=== PATIENT | female | born 1960 | race Caucasian/White ===

== ENCOUNTER 2017-07-07 05:39 | Emergency (ER) | payer MEDICARE, MEDICAID ==
[2017-07-07 06:01] VITALS: BP 174/90
--- NOTE | 2017-07-07 06:58 | ER Document Report ---
ED General - General Chief Complaint: Low Blood Sugar Stated Complaint: FALL Time Seen by Provider: 07/07/17 06:10 Mode of Arrival: Ambulatory Information source: Patient Notes: 57-year-old female diabetic who has been taking 50 units of insulin in the morning and 30 units at night but has not been checking her blood sugar since she does not have a machine at home presents with a fall. Patient notes she is fallen out 3 times in the past 2 weeks. She is unsure why she fell. When EMS checked her blood sugar was noted to be low glucose of 53, she was given oral glucose 15 mg by EMS and is now alert and oriented TRAVEL OUTSIDE OF THE [place] IN LAST 30 DAYS: No - HPI Onset: Just prior to arrival Onset/Duration: Sudden Quality of pain: Achy Severity: Mild Pain Level: 1 Associated symptoms: Body/muscle aches, Weakness Exacerbated by: Denies Relieved by: Denies Similar symptoms previously: Yes Recently seen / treated by doctor: No - Related Data Allergies/Adverse Reactions: codeine [Codeine] Allergy (Mild, Verified 03/10/16 22:34) fluoxetine HCl [From Prozac] Allergy (Mild, Verified 03/10/16 22:34) Past Medical History - Social History Smoking Status: Never Smoker Cigarette use (# per day): No Chew tobacco use (# tins/day): No Smoking Education Provided: No Family History: Reviewed & Not Pertinent - Past Medical History Cardiac Medical History: Reports: Hx Atrial Fibrillation, Hx Hypercholesterolemia, Hx Hypertension Pulmonary Medical History: Reports: Hx Asthma Neurological Medical History: Reports: Hx Cerebrovascular Accident Endocrine Medical History: Reports: Hx Diabetes Mellitus Type 1, Hx Diabetes Mellitus Type 2 Psychiatric Medical History: Reports: Hx Depression Past Surgical History: Reports: Hx Appendectomy, Hx Section, Hx Cholecystectomy, Hx Tonsillectomy Review of Systems - Review of Systems Notes: REVIEW OF SYSTEMS: CONSTITUTIONAL : Denies fever, chills, or sweats. Denies recent illness. EENT: Denies eye, ear, throat, or mouth pain or symptoms. Denies nasal or sinus congestion or discharge. Denies throat, tongue, or mouth swelling or difficulty swallowing. CARDIOVASCULAR: Denies chest pain. Denies palpitations or racing or irregular heart beat. Denies ankle edema. RESPIRATORY: Denies cough, cold, or chest congestion. Denies shortness of breath, difficulty breathing, or wheezing. GASTROINTESTINAL: Denies abdominal pain or distention. Denies nausea, vomiting , or diarrhea. Denies blood in vomitus, stools, or per rectum. Denies black, tarry stools. Denies constipation. GENITOURINARY: Denies difficulty urinating, painful urination, burning, frequency, blood in urine, or discharge. FEMALE GENITOURINARY: Denies vaginal bleeding, heavy or abnormal periods, irregular periods. Denies vaginal discharge or odor. MUSCULOSKELETAL: Admits low back pain SKIN: Denies rash, lesions or sores. HEMATOLOGIC : Denies easy bruising or bleeding. LYMPHATIC: Denies swollen, enlarged glands. NEUROLOGICAL: Admits to weakness PSYCHIATRIC: Denies anxiety or stress. Denies depression, suicidal ideation, or homicidal ideation. ALL OTHER SYSTEMS REVIEWED AND NEGATIVE. PHYSICAL EXAMINATION: GENERAL: Well-appearing, well-nourished and in no acute distress. HEAD: Atraumatic, normocephalic. EYES: Pupils equal round and reactive to light, extraocular movements intact, conjunctiva are normal. ENT: Nares patent, oropharynx clear without exudates. Moist mucous membranes. NECK: Normal range of motion, supple without lymphadenopathy LUNGS: Breath sounds clear to auscultation bilaterally and equal. No wheezes rales or rhonchi. HEART: Regular rate and rhythm without murmurs ABDOMEN: Soft, nontender, nondistended abdomen. No guarding, no rebound. No masses appreciated. Female : deferred Musculoskeletal: Normal range of motion, no pitting or edema. No cyanosis. NEUROLOGICAL: Cranial nerves grossly intact. Normal speech, normal gait. Normal sensory, motor exams PSYCH: Normal mood, normal affect. SKIN: Psoriasis noted Dictation was performed using [employer] voice recognition software Physical Exam - Vital signs Vitals: Temp Pulse Resp BP Pulse Ox 98.1 F 86 20 174/90 H 96 07/07/17 05:53 07/07/17 05:53 07/07/17 05:53 07/07/17 05:53 07/07/17 05:53 Course - Re-evaluation Re-evalutation: 07/07/17 06:58 Patient has been fed is alert oriented, she looks much better now than EMSs presentation. I believe her falls have been secondary to hypoglycemic events. Patient will have lab work ordered to rule out any other life-threatening abnormalities 07/07/17 07:39 Patient's blood sugar is noted to be 71 on her CMP, she has been ordered food 07/07/17 09:09 Patient lab work otherwise notes no significant abnormality she looks well is in no distress I will discharge her home at this time. Patient must check her blood sugar prior to giving herself insulin After performing a Medical Screening Examination, I estimate there is LOW risk for ACUTE APPENDICITIS, BOWEL OBSTRUCTION, ACUTE CHOLECYSTITIS, PERFORATED DIVERTICULITIS, INCARCERATED HERNIA, PANCREATITIS, PELVIC INFLAMMATORY DISEASE, PERFORATED ULCER, ECTOPIC , or TUBO-OVARIAN ABSCESS, thus I consider the discharge disposition reasonable. Also, there is no evidence or peritonitis , sepsis, or toxicity. I have reevaluated this patient multiple times and no significant life threatening changes are noted. The patient and I have discussed the diagnosis and risks, and we agree with discharging home with close follow-up with the understanding that symptoms and presentations can change. We also discussed returning to the Emergency Department immediately if new or worsening symptoms occur. We have discussed the symptoms which are most concerning (e.g., bloody stool, fever, changing or worsening pain, vomiting) that necessitate immediate return. - Vital Signs Vital signs: Temp Pulse Resp BP Pulse Ox 98.1 F 86 20 174/90 H 96 07/07/17 05:53 07/07/17 05:53 07/07/17 05:53 07/07/17 05:53 07/07/17 05:53 - Laboratory Result Diagrams: 07/07/17 06:50 07/07/17 06:50 Laboratory results interpreted by me: 07/07/17 07/07/17 05:59 06:50 Sodium 146.2 H Carbon Dioxide 33 H Glucose 72 L POC Glucose 111 H Discharge - Discharge Clinical Impression: Noncompliance with medication regimen, Hypoglycemia Condition: Stable Disposition: HOME, SELF-CARE Instructions: Hypoglycemia ([facility]) Additional Instructions: Follow up with your physician tomorrow for further care or return to the ED IMMEDIATELY if symptoms worsen or new concerns occur. If you cannot afford to follow up with your primary care physician a list of low cost clinics have been provided at the end of your discharge papers as well. Referrals: CHRISTIAN CHERRY PA-C [Primary Care Provider] - Follow up tomorrow
[2017-07-07 07:05] LABS: APPEARANCE,URINE CLEAR; BILIRUBIN,URINE NEGATIVE (NEGATIVE); GLUCOSE, URINE NEGATIVE (NEGATIVE); KETONES,URINE NEGATIVE (NEGATIVE); LEUKOCYTE ESTERASE,URINE NEGATIVE (NEGATIVE); NITRITE,URINE NEGATIVE (NEGATIVE); PROTEIN,URINE NEGATIVE (NEGATIVE); URINE SPECIFIC GRAVITY 1.008; UROBILINOGEN,URINE NEGATIVE mg/dL (<2.0)
[2017-07-07 07:07] LABS: ABSOLUTE BASOPHILS # (AUTO) 0.1 10^3/uL (0.0-0.2); ABSOLUTE LYMPHOCYTES (AUTO) 1.3 10^3/uL (0.5-4.7); ABSOLUTE MONOCYTES (AUTO) 0.7 10^3/uL (0.1-1.4); ABSOLUTE NEUT (AUTO) 6.5 10^3/uL (1.7-8.2); BASOPHILS % (AUTO) 0.8 % (0-2); EOSINOPHILS % (AUTO) 0.5 % (0-6); HEMATOCRIT 43.2 % (36.0-47.0); HEMOGLOBIN 14.7 g/dL (12.0-15.5); HGB HCT DIFFERENCE 0.9; MEAN CORPUSCULAR HEMOGLOBIN 31.7 pg (27.0-33.4); MEAN CORPUSCULAR HGB CONC 34.1 g/dL (32.0-36.0); MEAN CORPUSCULAR VOLUME 93 fl (80-97); MONOCYTES % (AUTO) 8.5 % (3-13); RED BLOOD COUNT 4.64 10^6/uL (3.72-5.28); SEGMENTED NEUTROPHILS % (AUTO) 75.2 % (42-78); WHITE BLOOD COUNT 8.7 10^3/uL (4.0-10.5)
[2017-07-07 07:25] LABS: ALANINE AMINOTRANSFERASE 36 U/L (9-52); ALBUMIN 3.7 g/dL (3.5-5.0); ALKALINE PHOSPHATASE 107 U/L (38-126); ANION GAP 7 (5-19); ASPARTATE AMINO TRANSFERASE 21 U/L (14-36); BILIRUBIN,DIRECT 0.4 mg/dL (0.0-0.4); BILIRUBIN,TOTAL 0.6 mg/dL (0.2-1.3); BLOOD UREA NITROGEN 14 mg/dL (7-20); CALCIUM 9.2 mg/dL (8.4-10.2); CARBON DIOXIDE 33 mmol/L (22-30); CHLORIDE 106 mmol/L (98-107); CREATININE RESULT 0.58 mg/dL (0.52-1.25); GLUCOSE 72 mg/dL (75-110); POTASSIUM 3.8 mmol/L (3.6-5.0); SODIUM 146.2 mmol/L (137-145); TOTAL PROTEIN 6.4 g/dL (6.3-8.2)
[2017-07-07] MEDS ORDERED: IBUPROFEN 800 MG TABLET PO ONE (09:17)
--- NOTE | 2017-07-07 11:34 | RADIOLOGY REPORT (SQ) ---
EXAM DESCRIPTION: L SPINE WHOLE COMPLETED DATE/TIME: 07/07/2017 8:43 am REASON FOR STUDY: fall COMPARISON: February 2016 NUMBER OF VIEWS: Five views including obliques. TECHNIQUE: AP, lateral, oblique, and sacral radiographic images acquired of the lumbar spine. LIMITATIONS: Study is limited due to the patient's body habitus. Lateral views could not be obtaine d. FINDINGS: MINERALIZATION: Normal. SEGMENTATION: Normal. No transitional anatomy. ALIGNMENT: Normal. VERTEBRAE: Maintained height. No fracture or worrisome bone lesion. DISCS: Preserved height. No significant osteophytes or end plate irregularity. POSTERIOR ELEMENTS: Pedicles and facets are intact. No pars defect or posterior arch defects. HARDWARE: None in the spine. PARASPINAL SOFT TISSUES: Normal. PELVIS: Intact as visualized. No fractures or worrisome bone lesions. SI joints intact. OTHER: No other significant finding. IMPRESSION: Limited study as noted above. No significant findings. TECHNICAL DOCUMENTATION: JOB ID: [id number] [employer]- All Rights Reserved
== END 2017-07-07 10:50 | disposition home or self-care (01) ==
LOC: ER 05:39
DX: E11.649 Type 2 diabetes mellitus with hypoglycemia without coma (principal); W19.XXXA Unspecified fall, initial encounter; Z79.4 Long term (current) use of insulin; Z91.14 Patient's other noncompliance with medication regimen
CPT/HCPCS: 36415; 72110; 80053; 81001; 82962; 85025; 99284

== ENCOUNTER 2018-02-08 15:21 | Observation (INO) | payer MEDICARE, MEDICAID ==
[2018-02-08] MEDS ORDERED: NITROGLYCERIN 2% OINTMENT 1 GM PACKET TP ONE (15:36)
--- NOTE | 2018-02-08 15:39 | ER Document Report ---
ED General - General Stated Complaint: CHEST PAIN Time Seen by Provider: 02/08/18 15:36 Mode of Arrival: Medic Information source: Patient Notes: This is a pleasant 57-year-old female with a history of coronary artery disease (MT in the past), cerebral aneurysm pair, multiple CVAs, atrial fibrillation ( on Eliquis). Patient is currently a resident of [facility] because of significant fall risk. Patient presents with 1 hour history of chest pain. Patient describes retrosternal, nonradiating squeezing pressure. She does report some shortness of breath. She was given 2 sublingual nitroglycerin and 324 mg of aspirin by EMS. Patient states she did have relief with the nitroglycerin. TRAVEL OUTSIDE OF THE [place] IN LAST 30 DAYS: No - HPI Onset: Just prior to arrival Onset/Duration: Gradual Quality of pain: Dull Severity: Moderate Pain Level: 2 Associated symptoms: Chest pain. denies: Fever, Shortness of breath Exacerbated by: Denies Relieved by: Denies Similar symptoms previously: Yes Recently seen / treated by doctor: No - Related Data Allergies/Adverse Reactions: codeine [Codeine] Allergy (Mild, Verified 03/10/16 22:34) fluoxetine HCl [From Prozac] Allergy (Mild, Verified 03/10/16 22:34) Past Medical History - General Information source: Patient - Social History Smoking Status: Never Smoker Cigarette use (# per day): No Chew tobacco use (# tins/day): No Frequency of alcohol use: None Drug Abuse: None Family History: Reviewed & Not Pertinent Patient has suicidal ideation: No Patient has homicidal ideation: No - Past Medical History Cardiac Medical History: Reports: Hx Atrial Fibrillation, Hx Hypercholesterolemia, Hx Hypertension Pulmonary Medical History: Reports: Hx Asthma Neurological Medical History: Reports: Hx Cerebrovascular Accident Endocrine Medical History: Reports: Hx Diabetes Mellitus Type 1, Hx Diabetes Mellitus Type 2 Psychiatric Medical History: Reports: Hx Depression Past Surgical History: Reports: Hx Appendectomy, Hx Section, Hx Cholecystectomy, Hx Tonsillectomy Review of Systems - Review of Systems Constitutional: denies: Chills, Fever EENT: No symptoms reported Cardiovascular: See HPI Respiratory: No symptoms reported Gastrointestinal: No symptoms reported Genitourinary: No symptoms reported Female Genitourinary: No symptoms reported Musculoskeletal: No symptoms reported Skin: No symptoms reported Hematologic/Lymphatic: No symptoms reported Neurological/Psychological: No symptoms reported Physical Exam - Vital signs Vitals: Resp BP Pulse Ox 22 H 148/92 H 94 02/08/18 15:28 02/08/18 15:28 02/08/18 15:28 Notes: Physical exam: GENERAL: 57-year-old female, alert and oriented 3, no acute distress HEAD: Atraumatic, normocephalic. EYES: Pupils equal round and reactive to light, extraocular movements intact, sclera anicteric, conjunctiva are normal. ENT: TMs normal, nares patent, oropharynx clear without exudates. Moist mucous membranes. NECK: Normal range of motion, supple without obvious mass or JVD. LUNGS: Breath sounds clear to auscultation bilaterally and equal. No wheezes rales or rhonchi. HEART: Regular rate and rhythm without murmurs, rubs or gallops. ABDOMEN: Soft, normoactive bowel sounds. No tenderness to palpation. No guarding, no rebound. No masses appreciated. EXTREMITIES: Normal range of motion, no pitting or edema. No clubbing or cyanosis. NEUROLOGICAL: Cranial nerves II through XII grossly intact. Normal speech, moving all extremities. PSYCH: Normal mood, normal affect. SKIN: Warm, Dry, normal turgor, no rashes or lesions noted. Course - Vital Signs Vital signs: Temp Pulse Resp BP Pulse Ox 98.1 F 80 20 143/65 H 91 L 02/08/18 22:01 02/08/18 22:01 02/08/18 22:01 02/08/18 22:01 02/08/18 22:01 - Laboratory Result Diagrams: 02/08/18 16:15 02/08/18 16:15 Laboratory results interpreted by me: 02/08/18 16:15 Glucose 280 H Total Protein 6.1 L - Diagnostic Test Radiology reviewed: Image reviewed, Reports reviewed - Chest x-ray shows no infiltrates - EKG Interpretation by Ks Rate: Normal Rhythm: NSR - EKG shows normal sinus rhythm with a ventricular rate of 87, no acute ST-T wave changes Discharge - Discharge Clinical Impression: Chest pain Condition: Stable Disposition: ADMITTED OBSERVATION Admitting Provider: Hospitalist - Dr Chen Unit Admitted: Telemetry
--- NOTE | 2018-02-08 16:26 | RADIOLOGY REPORT (SQ) ---
EXAM DESCRIPTION: CHEST SINGLE VIEW COMPLETED DATE/TIME: 02/08/2018 4:17 pm REASON FOR STUDY: cp COMPARISON: 05/17/2010 EXAM PARAMETERS: NUMBER OF VIEWS: One view. TECHNIQUE: Single frontal radiographic view of the chest acquired. RADIATION DOSE: NA LIMITATIONS: None. FINDINGS: LUNGS AND PLEURA: Low lung volumes. No acute infiltrate. A pleural effusion cannot be ex cluded in the left base. MEDIASTINUM AND HILAR STRUCTURES: No masses. Contour normal. HEART AND VASCULAR STRUCTURES: Cardiomegaly. Pulmonary vascular prominence. No km failure. BONES: No acute findings. HARDWARE: None in the chest. OTHER: No other significant finding. IMPRESSION: Cardiomegaly with pulmonary vascular prominence but no km CHF. Cannot exclude a left pleural effusion. TECHNICAL DOCUMENTATION: JOB ID: [id number] [employer]- All Rights Reserved Reading location - IP/workstation name: [email or web address]
[2018-02-08 16:33] LABS: ABSOLUTE BASOPHILS # (AUTO) 0.1 10^3/uL (0.0-0.2); ABSOLUTE EOSINOPHILS # (AUTO) 0.1 10^3/uL (0.0-0.6); ABSOLUTE LYMPHOCYTES (AUTO) 2.3 10^3/uL (0.5-4.7); ABSOLUTE MONOCYTES (AUTO) 0.7 10^3/uL (0.1-1.4); EOSINOPHILS % (AUTO) 1.7 % (0-6); HEMATOCRIT 44.2 % (36.0-47.0); HEMOGLOBIN 14.9 g/dL (12.0-15.5); LYMPHOCYTES % (AUTO) 28.1 % (13-45); MEAN CORPUSCULAR HEMOGLOBIN 31.6 pg (27.0-33.4); MEAN CORPUSCULAR HGB CONC 33.7 g/dL (32.0-36.0); MEAN CORPUSCULAR VOLUME 94 fl (80-97); MONOCYTES % (AUTO) 8.9 % (3-13); PLATELET COUNT 269 10^3/uL (150-450); RED BLOOD COUNT 4.73 10^6/uL (3.72-5.28); RED CELL DISTRIBUTION WIDTH 13.8 % (11.5-14.0); SEGMENTED NEUTROPHILS % (AUTO) 60.3 % (42-78); TOTAL CELLS COUNTED % (AUTO) 100 %; WHITE BLOOD COUNT 8.3 10^3/uL (4.0-10.5)
[2018-02-08 16:45] LABS: ALANINE AMINOTRANSFERASE 44 U/L (9-52); ALBUMIN 3.7 g/dL (3.5-5.0); ALKALINE PHOSPHATASE 123 U/L (38-126); ANION GAP 10 (5-19); ASPARTATE AMINO TRANSFERASE 20 U/L (14-36); BILIRUBIN,DIRECT 0.3 mg/dL (0.0-0.4); BILIRUBIN,TOTAL 0.3 mg/dL (0.2-1.3); BLOOD UREA NITROGEN 13 mg/dL (7-20); CARBON DIOXIDE 30 mmol/L (22-30); CHLORIDE 102 mmol/L (98-107); CREATINE KINASE 34 U/L (30-135); GLUCOSE 280 mg/dL (75-110); POTASSIUM 4.3 mmol/L (3.6-5.0); SODIUM 142.4 mmol/L (137-145); TOTAL PROTEIN 6.1 g/dL (6.3-8.2)
[2018-02-08] MEDS ORDERED: NICOTINE 14 MG/24 HR PATCH.TD24 TD ONE (17:01)
[2018-02-08 17:06] LABS: CREATINE KINASE MB 0.68 ng/mL (<4.55)
[2018-02-08 17:07] LABS: TROPONIN I < 0.012 ng/mL
--- NOTE | 2018-02-08 18:25 | EKG REPORT ---
SEVERITY:- BORDERLINE ECG - SINUS RHYTHM BORDERLINE LEFT AXIS DEVIATION CONSIDER ANTERIOR INFARCT : Confirmed by: Bonifacio Gutierrez MD 08-Feb-2018 18:24:58
--- NOTE | 2018-02-08 19:26 | PDOC H&P ---
History of Present Illness Admission Date/PCP: 02/08/18 18:14 CHRISTIAN CHERRY PA-C Patient complains of: Chest pain History of Present Illness: MAHAD WHEAT is a 57 year old female with history of paroxysmal A. fib, CVA, history of multiple CVAs and resident of [facility] apparently due to falls risk. She now presented with complaint of chest pressure for 1 hour, in the middle of her chest, squeezing. No diaphoresis, no nausea or vomiting. Patient reports history of CAD and ME about 10 years ago, states this pain is different. She presented to the ED where EKG was unremarkable. She was treated with nitro with significant improvement in symptoms. Denies dysuria or polyuria, no urinary frequency. Denies rectal bleeding. No abdominal pain, denies palpitations. Patient is referred to hospitalist service for admission. Past Medical History Cardiac Medical History: Reports: Atrial Fibrillation, Hyperlipidema, Hypertension Pulmonary Medical History: Reports: Asthma Endocrine Medical History: Reports: Diabetes Mellitus Type 1, Diabetes Mellitus Type 2 Psychiatric Medical History: Reports: Depression Past Surgical History Past Surgical History: Reports: Appendectomy, Section, Cholecystectomy , Tonsillectomy Social History Smoking Status: Current Every Day Smoker Frequency of Alcohol Use: None Hx Recreational Drug Use: Yes Drugs: Marijuana Hx Prescription Drug Abuse: No Family History Family History: Reviewed & Not Pertinent Parental Family History Reviewed: Yes Children Family History Reviewed: Yes Sibling(s) Family History Reviewed.: Yes Medication/Allergy Allergies/Adverse Reactions: codeine [Codeine] Allergy (Mild, Verified 03/10/16 22:34) fluoxetine HCl [From Prozac] Allergy (Mild, Verified 03/10/16 22:34) Review of Systems Review of Systems: CONSTITUTIONAL : Fever, chills -- No; unexpalined fatigue -- No EENT: Denies eye, ear, throat, or mouth pain or symptoms. Denies nasal or sinus congestion or discharge. Denies throat, tongue, or mouth swelling or difficulty swallowing. CARDIOVASCULAR: As in history present illness RESPIRATORY: Denies cough, no shortness of breath, difficulty breathing. GASTROINTESTINAL: Denies abdominal pain or distention. Denies nausea, vomiting , or diarrhea. No rectal bleeding. GENITOURINARY: Urinary symptoms -- no. MUSCULOSKELETAL: No acute weakness SKIN: Denies rash, lesions or sores. HEMATOLOGIC : Denies easy bruising or bleeding. LYMPHATIC: Denies swollen, enlarged glands. NEUROLOGICAL: New weakness, headaches, slured speach - No PSYCHIATRIC: Changes anxiety or stress, depression, suicidal ideation, or homicidal ideation -- No ALL OTHER SYSTEMS REVIEWED AND NEGATIVE. Physical Exam Vital Signs: Temp Pulse Resp BP Pulse Ox 98.4 F 22 H 148/83 H 95 02/08/18 15:42 02/08/18 18:01 02/08/18 18:01 02/08/18 18:01 GENERAL: Well-developed, no acute distress HEENT: Normocephalic/atraumatic NECK supple, no JVD CARDIOVASCULAR: RRR, normal S1-S2, no appreciable murmur LUNGS: CTA bilaterally ABDOMEN: Soft, NT, NL bowel sounds EXTREMITIES: No edema, clubbing, cyanosis NEUROLOGICAL: Alert, oriented x 3, no acute lateralizing weakness Results Impressions: Chest X-Ray 02/08/18 15:25 IMPRESSION: Cardiomegaly with pulmonary vascular prominence but no km CHF. Cannot exclude a left pleural effusion. Assessment & Plan - Diagnosis (1) Chest pain Is this a current diagnosis for this admission?: Yes Plan: We will admit to 24-hour supervision. Check serial troponin to rule out ME. Will treat with aspirin, nitro. O2 hypoxic. -Stress Cardiolite in a.m. if rules out for ME. -We will follow-up PA and lateral chest x-ray in a.m., check BNP. (2) Paroxysmal atrial fibrillation Is this a current diagnosis for this admission?: Yes Plan: Patient on Eliquis as outpatient. Will continue. (3) History of CVA (cerebrovascular accident) Is this a current diagnosis for this admission?: Yes Plan: Continue Eliquis. (4) CAD (coronary artery disease) Is this a current diagnosis for this admission?: Yes Plan: Aspirin, statin. (5) Tobacco abuse Is this a current diagnosis for this admission?: Yes Plan: Smoking cessation counseling. We will treat with nicotine patch. (6) Shortness of breath Is this a current diagnosis for this admission?: Yes Plan: Likely related to chest pain. Chest x-ray with possible congestion/possible left pleural effusion. Follow-up chest x-ray PA/lateral. Check BNP.
[2018-02-08] MEDS ORDERED: GUAIFENESIN 600 MG TABLET.SA PO PRN (22:24)
[2018-02-08] MEDS ORDERED: DEXTROSE 40% GEL 15 GM TUBE PO PRN ×2 (22:25)
[2018-02-08] MEDS ORDERED: GLUCAGON,HUMAN RECOMB 1 MG INJ IM PRN (22:25)
[2018-02-08] MEDS ORDERED: DEXTROSE 50%-WATER 25 GM/50 ML DISP.SYRIN IV PRN ×2 (22:25)
[2018-02-08] MEDS ORDERED: APIXABAN 5 MG TABLET PO ONE (23:00)
[2018-02-09 06:52] LABS: HEMATOCRIT 43.6 % (36.0-47.0); HEMOGLOBIN 14.7 g/dL (12.0-15.5); MEAN CORPUSCULAR HEMOGLOBIN 31.5 pg (27.0-33.4); MEAN CORPUSCULAR HGB CONC 33.8 g/dL (32.0-36.0); MEAN CORPUSCULAR VOLUME 93 fl (80-97); PLATELET COUNT 272 10^3/uL (150-450); RED BLOOD COUNT 4.69 10^6/uL (3.72-5.28); RED CELL DISTRIBUTION WIDTH 13.4 % (11.5-14.0); WHITE BLOOD COUNT 10.2 10^3/uL (4.0-10.5)
[2018-02-09 07:11] LABS: ANION GAP 8 (5-19); BLOOD UREA NITROGEN 13 mg/dL (7-20); CALCIUM 9.1 mg/dL (8.4-10.2); CARBON DIOXIDE 28 mmol/L (22-30); CHLORIDE 104 mmol/L (98-107); GLUCOSE 257 mg/dL (75-110); POTASSIUM 4.4 mmol/L (3.6-5.0); SODIUM 140.4 mmol/L (137-145)
[2018-02-09] MEDS: HUM INSULIN NPH/REG INSULIN HM 100 UNIT/1 ML 3 ML SUBCUT SCH ×2 (08:17→18:56)
[2018-02-09] MEDS ORDERED: (PENDING PHARMACY ID) (Buspirone Hcl [Buspar 15 Mg Tablet] 7.5 MG) PO SCH (10:00)
[2018-02-09] MEDS ORDERED: (PENDING PHARMACY ID) (Lisinopril/Hydrochlorothiazide [Lisinopril-Hctz 20-12.5 Mg Tab] 1 E PO SCH (10:00)
[2018-02-09] MEDS: LISINOPRIL 10 MG TABLET PO SCH (11:34)
[2018-02-09] MEDS: ATORVASTATIN CALCIUM 20 MG TABLET PO SCH (11:34)
[2018-02-09] MEDS: LEVOTHYROXINE SODIUM 0.1 MG TABLET PO SCH (11:34)
[2018-02-09] MEDS: ASPIRIN 81 MG TABLET, ENT COATED PO SCH (11:35)
[2018-02-09] MEDS: APIXABAN 5 MG TABLET PO SCH ×2 (11:35→20:52)
[2018-02-09] MEDS: HYDROCHLOROTHIAZIDE 12.5 MG CAPSULE PO SCH (11:35)
[2018-02-09] MEDS ORDERED: REGADENOSON INJ 0.4 MG/5 ML DISP.SYRIN IV ONE (11:52)
--- NOTE | 2018-02-09 12:00 | RADIOLOGY REPORT (SQ) ---
EXAM DESCRIPTION: CHEST 2 VIEWS COMPLETED DATE/TIME: 02/09/2018 11:24 am REASON FOR STUDY: chest pain, possible pleural effusion R07.9 CHEST PAIN, UNSPECIFIED R06.02 SHORT NESS OF BREATH COMPARISON: 02/08/2018. NUMBER OF VIEWS: One view. TECHNIQUE: Single frontal radiographic view of the chest acquired. LIMITATIONS: None. FINDINGS: LUNGS AND PLEURA: Eventration of the right hemidiaphragm. Left pleural effusion. MEDIASTINUM AND HILAR STRUCTURES: No masses or contour abnormality. HEART AND VASCULATURE: Cardiac enlargement. Vascular congestion. BONES: No acute findings. HARDWARE: None in the chest. OTHER: No other significant finding. IMPRESSION: CARDIAC ENLARGEMENT. VASCULAR CONGESTION. LEFT PLEURAL EFFUSION. TECHNICAL DOCUMENTATION: JOB ID: [id number] [employer]- All Rights Reserved Reading location - IP/workstation name: [email or web address]
[2018-02-09] MEDS ORDERED: ALBUTEROL SULFATE HFA (90 MCG/PUFF) 8 GM MDI (1 MDI/ER DISP) IH PRN (14:03)
[2018-02-09] MEDS ORDERED: ALBUTEROL SULFATE HFA (90 MCG/PUFF) 200 PUFF/8.5 GM MDI IH PRN (14:08)
--- NOTE | 2018-02-09 14:22 | PDOC PROGRESS REPORT ---
Subjective Progress Note for:: 02/09/18 Subjective:: Doing better, no more chest pain at this time. No fever or chills, no shortness of breath or palpitations. Denies cough or hemoptysis. Reason For Visit: CHEST PAIN, CAD Physical Exam Vital Signs: Temp Pulse Resp BP Pulse Ox 97.6 F 78 20 152/96 H 95 02/09/18 11:32 02/09/18 11:32 02/09/18 11:32 02/09/18 11:32 02/09/18 11:32 Intake & Output 02/08/18 02/09/18 02/10/18 06:59 06:59 06:59 Output Total 600 Balance -600 Weight 139.8 kg GEN: NAD, well-developed, well-nourished CV: RRR, NL S1S2 LUNGS: Decreased breath sounds left base ABDOMEN Soft, NT, +BS EXTERMITIES: No e/c/c NEURO: Alert, oriented x3, no significant weakness Results Laboratory Results: 02/09/18 06:45 02/09/18 06:45 02/09/18 02/09/18 06:45 06:45 WBC 10.2 RBC 4.69 Hgb 14.7 Hct 43.6 MCV 93 MCH 31.5 MCHC 33.8 RDW 13.4 Plt Count 272 Sodium 140.4 Potassium 4.4 Chloride 104 Carbon Dioxide 28 Anion Gap 8 BUN 13 Creatinine 0.55 Est GFR ( Amer) > 60 Est GFR (Non-Af Amer) > 60 Glucose 257 H Calcium 9.1 02/08/18 02/09/18 02/09/18 21:28 06:45 06:45 Troponin I < 0.012 < 0.012 NT-Pro-B Natriuret Pep 54 Impressions: Chest X-Ray 02/09/18 06:30 IMPRESSION: CARDIAC ENLARGEMENT. VASCULAR CONGESTION. LEFT PLEURAL EFFUSION. Assessment & Plan - Diagnosis (1) Chest pain Is this a current diagnosis for this admission?: Yes Plan: We will admit to 24-hour supervision. Has ruled out for GA. Will continue with aspirin, nitro. O2 hypoxic. -Stress Cardiolite first part done, second part in am due to obesity. -follow-up PA and lateral chest x-ray remains because finding for pulmonary congestion pleural effusion, BNP normal. Will treat with Lasix 40 mg p.o. daily. (2) Paroxysmal atrial fibrillation Is this a current diagnosis for this admission?: Yes Plan: Continue on Eliquis which was as outpatient. (3) History of CVA (cerebrovascular accident) Is this a current diagnosis for this admission?: Yes Plan: Continue Eliquis. (4) CAD (coronary artery disease) Is this a current diagnosis for this admission?: Yes Plan: Continue aspirin, statin. (5) Tobacco abuse Is this a current diagnosis for this admission?: Yes Plan: Smoking cessation counseling. We will treat with nicotine patch. (6) Shortness of breath Is this a current diagnosis for this admission?: Yes Plan: Likely related to chest pain. Chest x-ray also with with possible congestion/ left pleural effusion. Will start Lasix 40 mg p.o. daily.
[2018-02-09] MEDS ORDERED: FUROSEMIDE 40 MG TABLET PO ONE (14:30)
[2018-02-09] MEDS: NICOTINE 21 MG/24 HR PATCH.TD24 TD SCH (15:40)
[2018-02-09] MEDS: INSULIN LISPRO 100 UNIT/ML 3 ML VIAL SUBCUT PRN (16:18)
[2018-02-10] MEDS ORDERED: FUROSEMIDE 40 MG TABLET PO SCH (10:00)
[2018-02-10] MEDS: HUM INSULIN NPH/REG INSULIN HM 100 UNIT/1 ML 3 ML SUBCUT SCH ×2 (10:27→18:10)
[2018-02-10] MEDS: LEVOTHYROXINE SODIUM 0.1 MG TABLET PO SCH (12:46)
[2018-02-10] MEDS: LISINOPRIL 10 MG TABLET PO SCH (12:46)
[2018-02-10] MEDS: ASPIRIN 81 MG TABLET, ENT COATED PO SCH (12:46)
[2018-02-10] MEDS: ATORVASTATIN CALCIUM 20 MG TABLET PO SCH (12:47)
[2018-02-10] MEDS: INSULIN LISPRO 100 UNIT/ML 3 ML VIAL SUBCUT PRN ×2 (12:48→16:53)
[2018-02-10] MEDS: APIXABAN 5 MG TABLET PO SCH (12:48)
[2018-02-10] MEDS: HYDROCHLOROTHIAZIDE 12.5 MG CAPSULE PO SCH (12:48)
--- NOTE | 2018-02-10 13:46 | DRAGON STRESS TEST REPORT ---
2 Day Intravenous Lexiscan Cardiolite stress test using single photon emmision computerized tomography. Date of Resting procedure: 02/10/2018. Date of Stress procedure: 02/09/2018. Ordering Provider: Aly Miller.(Hospitalist.). Indication: Chest pain. Coronary risk factors: Age, diabetes mellitus, hypertension, dyslipidemia, and tobacco abuse disorder Resting EKG: Sinus Rhythm. Low voltage throughout, but no ST-T changes. Stress EKG: No changes of ischemia. Reason for termination: Protocol. The patient had no chest pain or discomfort, and there were no arrhythmias seen. Conclusions: Normal EKG and hemodynamic response to IV Lexiscan. Nuclear data: On 02/09/2018 the patient was given intravenous Lexiscan at a dose of 0.4 mg in 5 mL intravenously, followed by flush with normal saline. Subsequently the stress dose of 40.7 millicuries of technetium 99m sestamibi was injected intravenously. As per protocol stress gated images were obtained. On 02/10/2018 at rest the patient was given 30.7millicuries of technetium 99m sestamibi injected intravenously. As per protocol rest non gated SPECT images were obtained. Nuclear interpretation: Review of images showed this is a poor quality study .There is significant breast contamination artifact of the anterior stanley. There is a mild perfusion defect in the stress images involving the lateral wall which normalizes in the resting images. This area has normal motion contraction and thickening by gated study. The rest of the segments of the myocardium had normal perfusion at rest, and normal perfusion post stress with IV Lexiscan. All segments of the myocardium had normal motion, contraction, and thickening by gated study. T. I D. ratio was abnormal at 1.64. Visually the T.I.D. ratio was abnormal. Computer read rest, and stress left ventricular ejection fraction were 65 %, and 54 %, respectively. Visually both the stress and rest ejection fractions were normal, and greater than 60 %. Conclusion: 1. There is scintigraphic evidence of Lexiscan induced mild myocardial ischemia involving the lateral wall. 2. There is no scintigraphic evidence of myocardial infarction/scar. 3. Abnormal TID ratio, which could mean significant or multivessel coronary artery disease. Recommendations: 1. Recommend cardiac catheterization to assess coronary anatomy, and vascularization of any significant coronary lesion. 2. Aggressive risk factor modification, and treating the underlying co- morbidities. Discussed with the hospitalist taking care of the patient. EMILY
[2018-02-10] MEDS: NICOTINE 21 MG/24 HR PATCH.TD24 TD SCH (15:23)
--- NOTE | 2018-02-10 16:21 | PDOC TRANSFER SUMMARY ---
General Admission Date/PCP: 02/08/18 18:14 CHRISTIAN CHERRY PA-C Resuscitation Status: Full Code - Transfer Diagnosis (1) Chest pain Is this a current diagnosis for this admission?: Yes (2) Paroxysmal atrial fibrillation Is this a current diagnosis for this admission?: Yes (3) History of CVA (cerebrovascular accident) Is this a current diagnosis for this admission?: Yes (4) CAD (coronary artery disease) Is this a current diagnosis for this admission?: Yes (5) Tobacco abuse Is this a current diagnosis for this admission?: Yes (6) Shortness of breath Is this a current diagnosis for this admission?: Yes - Transfer Medications Home Medications: Acetaminophen [Tylenol] 650 mg PO Q4HP PRN 02/08/18 Acetaminophen/Diphenhydramine [Tylenol Pm Ex-Strength Caplet] 2 tab PO QHS 02/08 Albuterol Sulfate [Proair HFA] 2 puff IH Q6HP PRN 02/08/18 Apixaban [Eliquis 5 mg Tablet] 5 mg PO Q12 02/08/18 Atorvastatin Calcium [Lipitor 20 mg Tablet] 20 mg PO DAILY 02/08/18 Buspirone HCl [Buspar 15 mg Tablet] 7.5 mg PO Q12 02/08/18 Guaifenesin [Mucinex] 600 mg PO Q8HP PRN 02/08/18 Hum Insulin NPH/Reg Insulin Hm [Novolin 70-30 100 Unit/Ml Vial] 46 unit SQ QPM 02/08/18 Hum Insulin NPH/Reg Insulin Hm [Novolin 70-30 100 Unit/Ml Vial] 50 unit SQ QAM 02/08/18 Levothyroxine Sodium [Synthroid] 100 mcg PO DAILY 02/08/18 Lisinopril/Hydrochlorothiazide [Lisinopril-Hctz 20-12.5 mg Tab] 1 each PO DAILY 02/08/18 Omeprazole 20 mg PO DAILY 02/08/18 Oxybutynin Chloride [Oxybutynin Chloride ER] 5 mg PO DAILY 02/08/18 Paroxetine HCl [Paxil] 40 mg PO DAILY 02/08/18 Transfer Medications: Current Medications Albuterol (Proair Hfa Inhalation Aerosol 8.5 Gm Mdi) 2 puff IH Q6HP PRN PRN Reason: SHORTNESS OF BREATH Stop: 03/11/18 14:07 Apixaban (Eliquis 5 Mg Tablet) 5 mg PO Q12 [facility] Stop: 03/11/18 09:59 Last Admin: 02/10/18 12:48 Dose: 5 mg Aspirin (Ecotrin 81 Mg Ec Tablet) 81 mg PO DAILY [facility] Stop: 03/11/18 09:59 Last Admin: 02/10/18 12:46 Dose: 81 mg Atorvastatin Calcium (Lipitor 20 Mg Tablet) 20 mg PO DAILY [facility] Stop: 03/11/18 09:59 Last Admin: 02/10/18 12:47 Dose: 20 mg Dextrose (Dextrose Inj 50% Syringe (25 Gm/50 Ml)) 25 gm IV PRN PRN; Protocol PRN Reason: PER PROTOCOL Stop: 03/10/18 22:24 Dextrose (Dextrose Inj 50% Syringe (25 Gm/50 Ml)) 12.5 gm IV PRN PRN; Protocol PRN Reason: FOR BG 50-69 IN ALERT PATIENT Stop: 03/10/18 22:24 Furosemide (Lasix 40 Mg Tablet) 40 mg PO DAILY [facility] Stop: 03/12/18 09:59 Last Admin: 02/10/18 12:47 Dose: 40 mg Glucagon (Glucagen Inj 1 Mg Vial) 1 mg IM PRN PRN; Protocol PRN Reason: Evaluate for BG < 70 Stop: 03/10/18 22:24 Glucose (Glutose 40% Gel 15 Gm Tube) 15 gm PO PRN PRN; Protocol PRN Reason: FOR BG 50-69 IN ALERT PATIENT Stop: 03/10/18 22:24 Glucose (Glutose 40% Gel 15 Gm Tube) 30 gm PO PRN PRN; Protocol PRN Reason: FOR BG < 50 IN ALERT PATIENT Stop: 03/10/18 22:24 Guaifenesin (Mucinex Sr 600 Mg Tablet.Sa) 600 mg PO Q8HP PRN PRN Reason: COUGH Hydrochlorothiazide (Hydrodiuril 12.5 Mg Capsule) 12.5 mg PO DAILY [facility] Stop: 03/11/18 09:59 Last Admin: 02/10/18 12:48 Dose: 12.5 mg Insulin Human Isoph/Insulin Regular (Insulin Inj 70-30 (100 Unit/1 Ml) 3 Ml Vial ) 46 unit SUBCUT QPM [facility] Stop: 03/11/18 17:59 Last Admin: 02/09/18 18:56 Dose: 46 unit Insulin Human Isoph/Insulin Regular (Insulin Inj 70-30 (100 Unit/1 Ml) 3 Ml Vial ) 50 unit SUBCUT QAM [facility] Stop: 03/11/18 07:59 Last Admin: 02/10/18 10:27 Dose: 50 unit Insulin Human Lispro (Humalog Insulin 100 Unit/1 Ml 3 Ml Vial) 0 - 12 unit SUBCUT ACP PRN; Protocol PRN Reason: PER PROTOCOL Stop: 03/10/18 22:24 Last Admin: 02/10/18 12:48 Dose: 6 unit Levothyroxine Sodium (Synthroid 0.1 Mg Tablet) 0.1 mg PO Q6AM [facility]RE[facility] Stop: 03/11/18 09:59 Lisinopril (Prinivil 10 Mg Tablet) 20 mg PO DAILY [facility] Stop: 03/11/18 09:59 Last Admin: 02/10/18 12:46 Dose: 20 mg Nicotine (Nicoderm 21 Mg/24 Hr Transderm Patch) 1 each TD DAILY@1500 [facility]RE[facility] Stop: 03/11/18 14:59 Last Admin: 02/10/18 15:23 Dose: 1 each Patient Own Medication (Buspirone Hcl [Buspar 15 Mg Tablet]) 7.5 mg PO Q12 [facility] Stop: 03/11/18 09:59 Sodium Chloride (Saline Flush 2.5 Ml Monoject Prefil Syrin) 2.5 ml IV Q8 [facility]RE[facility] Stop: 03/10/18 21:59 Last Admin: 02/10/18 15:22 Dose: 2.5 ml - Allergies Allergies/Adverse Reactions: codeine [Codeine] Allergy (Mild, Verified 03/10/16 22:34) fluoxetine HCl [From Prozac] Allergy (Mild, Verified 03/10/16 22:34) quetiapine [From Seroquel] Allergy (Verified 02/09/18 04:51) Hospital Course Hospital Course: MAHAD WHEAT is a 57 year old female with history of paroxysmal A. fib, multiple CVAs and resident of [facility] apparently due to falls risks. She now presented to [facility] ED, in [place], [place], with complaint of chest pressure for 1 hour, in the middle of her chest, squeezing. No diaphoresis, no nausea or vomiting. Patient reported history of CAD and SC about 10 years ago but denies history of cardiac catheterization in the past. Upon current presentation, in the ED EKG was unremarkable. She was treated with nitro with significant improvement in symptoms. Denied dysuria or polyuria , no urinary frequency. No rectal bleeding. No abdominal pain, no palpitations. Patient was admitted to the hospitalist service telemetry. She ruled out for SC with serial troponin 3. She had a Lexiscan Cardiolite done and this revealed reversible ischemia in the lateral leads. The reading shoe shiner, Dr. Trinidad Breaux, recommended cardiac catheterization and transfer to a tertiary care facility where that can be done, as we do not have that capacity here. I spoke with patient and the daughter, they prefer [facility] in [place], [place]. Patient currently without chest pain, no shortness of breath or palpitations. She has been kindly accepted by Dr. De Santiago at [facility] and is being transferred in stable condition. Physical Exam Vital Signs: Temp Pulse Resp BP Pulse Ox 98.3 F 79 16 149/74 H 92 02/10/18 15:57 02/10/18 15:57 02/10/18 15:57 02/10/18 15:57 02/10/18 15:57 Intake & Output 02/09/18 02/10/18 02/11/18 06:59 06:59 06:59 Intake Total 1259 Output Total 600 1450 Balance -600 -191 Weight 139.8 kg 139 kg GENERAL: Well-developed, no acute distress HEENT: Normocephalic/atraumatic NECK supple, no JVD CARDIOVASCULAR: RRR, normal S1-S2, no appreciable murmur LUNGS: CTA bilaterally ABDOMEN: Soft, NT, NL bowel sounds EXTREMITIES: No edema, clubbing, cyanosis NEUROLOGICAL: Alert, oriented x 3, no acute lateralizing weakness Results Laboratory Results: 02/09/18 06:45 02/09/18 06:45 02/08/18 02/09/18 02/09/18 21:28 06:45 06:45 Troponin I < 0.012 < 0.012 NT-Pro-B Natriuret Pep 54 Impressions: Chest X-Ray 02/09/18 06:30 IMPRESSION: CARDIAC ENLARGEMENT. VASCULAR CONGESTION. LEFT PLEURAL EFFUSION. Plan Time Spent: Greater than 30 Minutes
[2018-02-11 02:49] VITALS: BP 126/69
[2018-02-11] MEDS ORDERED: LEVOTHYROXINE SODIUM 0.1 MG TABLET PO SCH (06:00)
== END 2018-02-10 20:00 | disposition short-term general hospital (02) ==
LOC: ER 15:21 → EH 18:14 → 4N 20:00
PROVIDERS: ADMIT Internal Medicine; ATTEND Internal Medicine
DX: R07.89 Other chest pain (principal); I48.0 Paroxysmal atrial fibrillation; Z86.73 Personal history of transient ischemic attack (TIA), and cerebral infarction without residual deficits; I25.10 Atherosclerotic heart disease of native coronary artery without angina pectoris; F17.200 Nicotine dependence, unspecified, uncomplicated; R06.02 Shortness of breath; I25.2 Old myocardial infarction; E66.9 Obesity, unspecified; J45.909 Unspecified asthma, uncomplicated; E78.5 Hyperlipidemia, unspecified; Z68.43 Body mass index [BMI] 50.0-59.9, adult; Z79.899 Other long term (current) drug therapy; Z79.02 Long term (current) use of antithrombotics/antiplatelets; Z90.49 Acquired absence of other specified parts of digestive tract
CPT/HCPCS: 93005; 99285; 36415 ×2; 82553; 82962 ×3; 82550; 85025; 85027; 80048; 80053; 84484 ×2; 83880; 93017; 71046; 71045; 78452; 93010; G0378 ×4; A9500; J2785; A9270 ×16; J3490 ×2; Q9969; J1815

== ENCOUNTER 2018-03-31 14:38 | Emergency (ER) | payer MEDICARE, MEDICAID ==
--- NOTE | 2018-03-31 15:19 | RADIOLOGY REPORT (SQ) ---
EXAM DESCRIPTION: CHEST SINGLE VIEW COMPLETED DATE/TIME: 03/31/2018 3:08 pm REASON FOR STUDY: chest pain COMPARISON: 02/09/2018 EXAM PARAMETERS: NUMBER OF VIEWS: One view. TECHNIQUE: Single frontal radiographic view of the chest acquired. RADIATION DOSE: NA LIMITATIONS: None. FINDINGS: LUNGS AND PLEURA: No acute opacities, masses or pneumothorax. Similar left basilar-subple ural scarring. No significant pleural effusion. MEDIASTINUM AND HILAR STRUCTURES: Stable. HEART AND VASCULAR STRUCTURES: Stable. BONES: No acute findings. HARDWARE: None in the chest. OTHER: No other significant finding. IMPRESSION: Stable radiographic appearance of the chest. TECHNICAL DOCUMENTATION: JOB ID: [id number] [place]-72 2010 [employer]- All Rights Reserved Reading location - IP/workstation name: [email or web address]
[2018-03-31 15:26] LABS: ABSOLUTE BASOPHILS # (AUTO) 0.1 10^3/uL (0.0-0.2); ABSOLUTE EOSINOPHILS # (AUTO) 0.1 10^3/uL (0.0-0.6); ABSOLUTE LYMPHOCYTES (AUTO) 2.4 10^3/uL (0.5-4.7); ABSOLUTE MONOCYTES (AUTO) 0.8 10^3/uL (0.1-1.4); ABSOLUTE NEUT (AUTO) 6.6 10^3/uL (1.7-8.2); BASOPHILS % (AUTO) 1.3 % (0-2); EOSINOPHILS % (AUTO) 1.5 % (0-6); HEMATOCRIT 43.6 % (36.0-47.0); LYMPHOCYTES % (AUTO) 24.1 % (13-45); MEAN CORPUSCULAR HEMOGLOBIN 32.3 pg (27.0-33.4); MEAN CORPUSCULAR HGB CONC 34.5 g/dL (32.0-36.0); MEAN CORPUSCULAR VOLUME 94 fl (80-97); MONOCYTES % (AUTO) 7.6 % (3-13); PLATELET COUNT 291 10^3/uL (150-450); RED BLOOD COUNT 4.66 10^6/uL (3.72-5.28); RED CELL DISTRIBUTION WIDTH 13.5 % (11.5-14.0); SEGMENTED NEUTROPHILS % (AUTO) 65.5 % (42-78); TOTAL CELLS COUNTED % (AUTO) 100 %
--- NOTE | 2018-03-31 15:31 | ER Document Report ---
ED General - General Mode of Arrival: Medic Information source: Patient TRAVEL OUTSIDE OF THE [place] IN LAST 30 DAYS: No <MASHA VEGA - Last Filed: 03/31/18 16:53> <JARED BAGLEY - Last Filed: 03/31/18 18:36> - General Stated Complaint: CHEST PAIN Time Seen by Provider: 03/31/18 15:16 Notes: Patient is a 57 year old female with CAD, afib, diabetes, hypothyrodism and a history of VT and strokes presents to the emergency department complaining of chest pain onset around 1230 today. Patient describes her chest pain as " someone trying to push a broom handle through my chest" further stating the pain lasted around 20 minutes. Patient states the chest pain is exacerbated when worrying about it and relieved with time. Patient denies any nitroglycerin use. At bedside patient states the pain is not as severe as earlier. Of significance, patient was admitted to this hospital on 02/08/2018 for chest pain and transferred to [facility] for a catheter 2 days later. While at [facility] patient was diagnosed with Non-Obstructive Coronary Artery Disease. Patient is currently taking Eloquis. (MASHA VEGA) - Related Data Allergies/Adverse Reactions: codeine [Codeine] Allergy (Mild, Verified 03/10/16 22:34) fluoxetine HCl [From Prozac] Allergy (Mild, Verified 03/10/16 22:34) quetiapine [From Seroquel] Allergy (Verified 02/09/18 04:51) Past Medical History - General Information source: Patient - Social History Smoking Status: Current Every Day Smoker Cigarette use (# per day): Yes - 1/2 a pack a day Chew tobacco use (# tins/day): Yes Frequency of alcohol use: None Family History: Reviewed & Not Pertinent - Past Medical History Cardiac Medical History: Reports: Hx Atrial Fibrillation, Hx Congestive Heart Failure, Hx Heart Attack, Hx Hypercholesterolemia, Hx Hypertension Pulmonary Medical History: Reports: Hx Asthma, Hx Bronchitis, Hx COPD, Hx Pneumonia Neurological Medical History: Reports: Hx Cerebrovascular Accident Endocrine Medical History: Reports: Hx Diabetes Mellitus Type 2 Musculoskeletal Medical History: Reports Hx Arthritis Psychiatric Medical History: Reports: Hx Depression Past Surgical History: Reports: Hx Appendectomy, Hx Section, Hx Cholecystectomy, Hx Tonsillectomy <MASHA VEGA - Last Filed: 03/31/18 16:53> Review of Systems - Review of Systems Constitutional: No symptoms reported EENT: No symptoms reported Cardiovascular: See HPI, Chest pain Respiratory: No symptoms reported Gastrointestinal: No symptoms reported Genitourinary: No symptoms reported Female Genitourinary: No symptoms reported Musculoskeletal: No symptoms reported Skin: No symptoms reported Hematologic/Lymphatic: No symptoms reported Neurological/Psychological: No symptoms reported -: Yes All other systems reviewed and negative <MASHA VEGA - Last Filed: 03/31/18 16:53> Physical Exam - General General appearance: Appears well, Alert In distress: None - HEENT Head: Normocephalic, Atraumatic Eyes: Normal Conjunctiva: Normal Extraocular movements intact: Yes Pupils: PERRL Mucous membranes: Normal Neck: Normal - Respiratory Respiratory status: No respiratory distress Chest status: Tender - Anterior chest wall tenderness to palpation. Breath sounds: Normal Chest palpation: Normal - Cardiovascular Rhythm: Other Heart sounds: Normal auscultation Murmur: No Friction rub: No Gallop: None auscultated - Abdominal Inspection: Morbidly Obese Distension: No distension Bowel sounds: Normal Tenderness: Tender - Epigastric tenderness to palpation Organomegaly: No organomegaly - Back Back: Normal - Extremities General upper extremity: Normal ROM General lower extremity: Normal ROM - Neurological Neuro grossly intact: Yes Cognition: Normal Orientation: AAOx4 [place] Coma Scale Eye Opening: Spontaneous Alec Coma Scale Verbal: Oriented [place] Coma Scale Motor: Obeys Commands [place] Coma Scale Total: 15 Speech: Normal - Psychological Associated symptoms: Normal affect, Normal mood - Skin Skin Temperature: Warm Skin Moisture: Dry Skin Color: Normal <MASHA VEGA - Last Filed: 03/31/18 16:53> - Vital signs Vitals: Pulse Ox 94 03/31/18 14:52 Course - Laboratory Result Diagrams: 03/31/18 15:15 03/31/18 15:15 <MASHA VEGA - Last Filed: 03/31/18 16:53> - Laboratory Result Diagrams: 03/31/18 15:15 03/31/18 15:15 <JARED BAGLEY - Last Filed: 03/31/18 18:36> - Vital Signs Vital signs: Temp Pulse Resp BP Pulse Ox 22 H 160/83 H 91 L 03/31/18 17:01 03/31/18 17:01 03/31/18 18:19 - Laboratory Laboratory results interpreted by me: 03/31/18 15:15 Glucose 250 H Discharge <MASHA VEGA - Last Filed: 03/31/18 16:53> <YUDIJARED Fuentes - Last Filed: 03/31/18 18:36> - Discharge Clinical Impression: Chest wall pain, High blood pressure associated with diabetes Gastroesophageal reflux disease Qualifiers: Esophagitis presence: esophagitis presence not specified Qualified Code(s): K21.9 - Gastro-esophageal reflux disease without esophagitis Condition: Stable Disposition: HOME, SELF-CARE Additional Instructions: Chest Wall Pain: Your chest pain has been diagnosed as coming from the chest wall. This is often caused by straining the muscles or joints in the chest during physical activity, direct trauma, coughing, or vigorous vomiting. Persons with arthritis are especially prone to this type of pain, due to inflammation of the cartilage joints near the breast bone. Occasionally, no cause can be found. Rest from strenuous physical activity. This kind of chest pain is usually made worse by movement of the chest. Depending on the symptoms, we may prescribe medicine for pain, muscle relaxation, and antiinflammatory effects. If the pain is new, and seems to be due to muscle strain, cold packs can help. Otherwise, apply gentle warmth to the painful area for 15 minutes every hour or two. You should contact the doctor immediately if things change. Further evaluation is needed if you develop a fever or cough, if the nature of the pain changes, or if you become short of breath. Reflux Disease (GERD): Gastro-Esophageal Reflux Disease (GERD) is caused by stomach acid refluxing back up into the esophagus. The valve at the end of the esophagus may be weak. This is common in persons with a hiatal hernia. GERD symptoms can include indigestion, chest pain, heartburn, or food "sticking." Certain foods, alcohol, and aspirin can make GERD worse. Treatment depends on the severity. Usually, antacids or acid-suppressing medicines are used. When the esophagus is acutely inflamed, the physician will often prescribe membrane-protective drugs such as Carafate. Some patients benefit from medication such as Reglan that tightens the valve at the top of the stomach. Avoid those foods that bring on your symptoms. For many people, these foods are coffee, chocolate, onions, garlic, and carbonated drinks. Don't use alcohol, aspirin, caffeine, or tobacco. Don't eat late at night -- within 4 hours of bedtime. Don't over-eat. If necessary, elevate the head of your bed about 4 inches so that stomach acid will not roll up into your esophagus. Call the doctor if you develop severe chest pain, inability to swallow fluids, fever, or worsening symptoms. Take Tylenol for your chest wall pain. Avoid foods that would increase her stomach acid and heartburn symptoms. Take antacids between meals and at bedtime. You were given a dose of Lopressor for your elevated blood pressure. Be sure to have your pressure checked regularly. Follow-up with your doctor tomorrow if not feeling better. RETURN TO THE EMERGENCY ROOM IF ANY NEW OR WORSENING SYMPTOMS. Referrals: CHRISTIAN CHERRY PA-C [Primary Care Provider] - Follow up as needed Scribe Attestation: 03/31/18 15:50 I personally performed the services described in the documentation, reviewed and edited the documentation which was dictated to the scribe in my presence, and it accurately records my words and actions. (JARED BAGLEY) Scribe Documentation - Scribe Written by Raina:: Raina Up, 03/31/2018 15:39 acting as scribe for :: Yudi <MASHA VEGA - Last Filed: 03/31/18 16:53>
[2018-03-31 15:39] LABS: ALANINE AMINOTRANSFERASE 33 U/L (9-52); ALBUMIN 3.7 g/dL (3.5-5.0); ALKALINE PHOSPHATASE 103 U/L (38-126); ANION GAP 8 (5-19); ASPARTATE AMINO TRANSFERASE 25 U/L (14-36); BILIRUBIN,DIRECT 0.3 mg/dL (0.0-0.4); BILIRUBIN,TOTAL 0.4 mg/dL (0.2-1.3); BLOOD UREA NITROGEN 14 mg/dL (7-20); CALCIUM 9.2 mg/dL (8.4-10.2); CARBON DIOXIDE 29 mmol/L (22-30); CHLORIDE 103 mmol/L (98-107); CREATINE KINASE 31 U/L (30-135); GLUCOSE 250 mg/dL (75-110); POTASSIUM 4.4 mmol/L (3.6-5.0); SODIUM 140.2 mmol/L (137-145); TOTAL PROTEIN 6.4 g/dL (6.3-8.2)
[2018-03-31 15:51] LABS: CREATINE KINASE MB 0.54 ng/mL (<4.55)
[2018-03-31 15:59] LABS: TROPONIN I < 0.012 ng/mL
[2018-03-31] MEDS ORDERED: LIDOCAINE 2% VISCOUS SOLN 20 ML UDCUP PO ONE (17:31)
[2018-03-31] MEDS ORDERED: MAG HYDROX/AL HYDROX/SIMETH SUSP 30 ML UDCUP PO ONE (17:31)
[2018-03-31 18:22] VITALS: BP 160/83
[2018-03-31] MEDS ORDERED: METOPROLOL TARTRATE 50 MG TABLET PO ONE (18:33)
--- NOTE | 2018-04-01 00:51 | EKG REPORT ---
SEVERITY:- BORDERLINE ECG - SINUS RHYTHM LEFT AXIS DEVIATION CONSIDER ANTERIOR INFARCT : Confirmed by: Trinidad Breaux MD 01-Apr-2018 00:50:47
== END 2018-03-31 20:18 | disposition home or self-care (01) ==
LOC: ER 14:38
DX: R07.89 Other chest pain (principal); I10 Essential (primary) hypertension; E11.9 Type 2 diabetes mellitus without complications; K21.9 Gastro-esophageal reflux disease without esophagitis; I25.10 Atherosclerotic heart disease of native coronary artery without angina pectoris; I48.91 Unspecified atrial fibrillation; E03.9 Hypothyroidism, unspecified; I25.2 Old myocardial infarction; Z79.01 Long term (current) use of anticoagulants; F17.210 Nicotine dependence, cigarettes, uncomplicated; J44.9 Chronic obstructive pulmonary disease, unspecified
CPT/HCPCS: 93005; 99285; 36415; 82553; 82550; 85025; 80053; 84484; 71045; 93010; J3490

== ENCOUNTER → 2018-04-19 | Outpatient (CLI) | payer MEDICARE, MEDICAID ==
[2018-04-19 14:17] LABS: ABSOLUTE BASOPHILS # (AUTO) 0.1 10^3/uL (0.0-0.2); ABSOLUTE EOSINOPHILS # (AUTO) 0.1 10^3/uL (0.0-0.6); ABSOLUTE LYMPHOCYTES (AUTO) 1.7 10^3/uL (0.5-4.7); ABSOLUTE MONOCYTES (AUTO) 0.8 10^3/uL (0.1-1.4); ABSOLUTE NEUT (AUTO) 6.6 10^3/uL (1.7-8.2); BASOPHILS % (AUTO) 0.6 % (0-2); EOSINOPHILS % (AUTO) 1.2 % (0-6); HEMATOCRIT 44.8 % (36.0-47.0); HEMOGLOBIN 15.2 g/dL (12.0-15.5); LYMPHOCYTES % (AUTO) 18.8 % (13-45); MEAN CORPUSCULAR HEMOGLOBIN 31.9 pg (27.0-33.4); MEAN CORPUSCULAR HGB CONC 33.9 g/dL (32.0-36.0); MEAN CORPUSCULAR VOLUME 94 fl (80-97); MONOCYTES % (AUTO) 8.1 % (3-13); PLATELET COUNT 311 10^3/uL (150-450); RED BLOOD COUNT 4.75 10^6/uL (3.72-5.28); RED CELL DISTRIBUTION WIDTH 13.6 % (11.5-14.0); SEGMENTED NEUTROPHILS % (AUTO) 71.3 % (42-78); TOTAL CELLS COUNTED % (AUTO) 100 %; WHITE BLOOD COUNT 9.3 10^3/uL (4.0-10.5)
[2018-04-19 14:44] LABS: ALANINE AMINOTRANSFERASE 29 U/L (9-52); ALBUMIN 3.9 g/dL (3.5-5.0); ALKALINE PHOSPHATASE 104 U/L (38-126); ANION GAP 14 (5-19); ASPARTATE AMINO TRANSFERASE 35 U/L (14-36); BILIRUBIN,DIRECT 0.4 mg/dL (0.0-0.4); BILIRUBIN,TOTAL 0.5 mg/dL (0.2-1.3); BLOOD UREA NITROGEN 16 mg/dL (7-20); CALCIUM 9.4 mg/dL (8.4-10.2); CARBON DIOXIDE 26 mmol/L (22-30); CHLORIDE 104 mmol/L (98-107); GLUCOSE 208 mg/dL (75-110); POTASSIUM 4.8 mmol/L (3.6-5.0); SODIUM 143.9 mmol/L (137-145); TOTAL PROTEIN 6.8 g/dL (6.3-8.2)
== END ==
LOC: OD 13:36
PROVIDERS: ATTEND Nurse Practitioner Psychiatric/Mental Health
DX: F32.9 Major depressive disorder, single episode, unspecified (principal); F34.1 Dysthymic disorder; F41.9 Anxiety disorder, unspecified; F43.22 Adjustment disorder with anxiety; Z79.899 Other long term (current) drug therapy
CPT/HCPCS: 36415; 80053; 84443; 85025

== ENCOUNTER → 2018-04-22 | Outpatient (CLI) | payer MEDICARE, MEDICAID ==
[2018-04-22 11:20] LABS: CHOLESTEROL 177.01 mg/dL (0-200); TRIGLYCERIDES 174 mg/dL (<150)
[2018-04-22 11:30] LABS: DIRECT LDL 99 mg/dL (<100)
[2018-04-22 11:34] LABS: VLDL CHOLESTEROL 34.8 mg/dL (10-31)
== END ==
LOC: OD 09:49
PROVIDERS: ATTEND Nurse Practitioner Psychiatric/Mental Health
DX: F32.9 Major depressive disorder, single episode, unspecified (principal); F34.1 Dysthymic disorder; F41.9 Anxiety disorder, unspecified; F43.22 Adjustment disorder with anxiety; Z79.899 Other long term (current) drug therapy
CPT/HCPCS: 36415; 80061

== ENCOUNTER 2018-06-07 10:05 | Emergency (ER) | payer MEDICARE, MEDICAID ==
--- NOTE | 2018-06-07 11:00 | RADIOLOGY REPORT (SQ) ---
EXAM DESCRIPTION: CT HEAD WITHOUT COMPLETED DATE/TIME: 06/07/2018 10:47 am REASON FOR STUDY: L sided facial droop COMPARISON: 03/10/2016 TECHNIQUE: Axial images acquired through the brain without intravenous contrast. Images reviewed wi th bone, brain and subdural windows. Additional sagittal and coronal reconstructions were generated. Images stored on PACS. All CT scanners at this facility use dose modulation, iterative reconstruction, and/or weight based d osing when appropriate to reduce radiation dose to as low as reasonably achievable (ALARA). [facility]: Dose Right [facility]: CareDose [facility]: Dose Right [facility]: Teradose 4D [facility]: [employer] RADIATION DOSE: CT Rad equipment meets quality standard of care and radiation dose reduction techniq ues were employed. CTDIvol: 53.2 mGy. DLP: 1044 mGy-cm.mGy. LIMITATIONS: Artifact from aneurysm clips. FINDINGS: VENTRICLES: Prominent. CEREBRUM: Stable encephalomalacia adjacent to left frontal craniotomy. Left MCA aneurysm clips. Old right basal ganglia infarct. CEREBELLUM: No masses. No hemorrhage. No alteration of density. No evidence for acute infarction. EXTRAAXIAL SPACES: Age-related involutional change. No fluid collections. No masses. ORBITS AND GLOBE: No intra- or extraconal masses. Normal contour of globe without masses. CALVARIUM: No fracture. PARANASAL SINUSES: No fluid or mucosal thickening. SOFT TISSUES: No mass or hematoma. OTHER: No other significant finding. IMPRESSION: Stable postsurgical and chronic ischemic changes. EVIDENCE OF ACUTE STROKE: NO. TECHNICAL DOCUMENTATION: JOB ID: [id number] Quality ID # [id number]: Final reports with documentation of one or more dose reduction techniques (e.g., Au tomated exposure control, adjustment of the mA and/or kV according to patient size, use of iterative reconstruction technique) 2010 [employer]- All Rights Reserved Reading location - IP/workstation name: [email or web address]
[2018-06-07 12:08] LABS: ABSOLUTE BASOPHILS # (AUTO) 0.1 10^3/uL (0.0-0.2); ABSOLUTE EOSINOPHILS # (AUTO) 0.1 10^3/uL (0.0-0.6); ABSOLUTE MONOCYTES (AUTO) 0.9 10^3/uL (0.1-1.4); ABSOLUTE NEUT (AUTO) 5.9 10^3/uL (1.7-8.2); BASOPHILS % (AUTO) 0.8 % (0-2); EOSINOPHILS % (AUTO) 1.3 % (0-6); HEMATOCRIT 45.1 % (36.0-47.0); LYMPHOCYTES % (AUTO) 30.2 % (13-45); MEAN CORPUSCULAR HEMOGLOBIN 31.7 pg (27.0-33.4); MEAN CORPUSCULAR HGB CONC 33.3 g/dL (32.0-36.0); MEAN CORPUSCULAR VOLUME 95 fl (80-97); PLATELET COUNT 339 10^3/uL (150-450); RED BLOOD COUNT 4.75 10^6/uL (3.72-5.28); RED CELL DISTRIBUTION WIDTH 13.7 % (11.5-14.0); SEGMENTED NEUTROPHILS % (AUTO) 58.7 % (42-78); TOTAL CELLS COUNTED % (AUTO) 100 %; WHITE BLOOD COUNT 10.1 10^3/uL (4.0-10.5)
[2018-06-07 12:34] LABS: ALANINE AMINOTRANSFERASE 30 U/L (9-52); ALBUMIN 3.7 g/dL (3.5-5.0); ALKALINE PHOSPHATASE 101 U/L (38-126); ANION GAP 9 (5-19); ASPARTATE AMINO TRANSFERASE 23 U/L (14-36); BILIRUBIN,DIRECT 0.4 mg/dL (0.0-0.4); BILIRUBIN,TOTAL 0.6 mg/dL (0.2-1.3); BLOOD UREA NITROGEN 18 mg/dL (7-20); CALCIUM 10.2 mg/dL (8.4-10.2); CARBON DIOXIDE 29 mmol/L (22-30); CHLORIDE 103 mmol/L (98-107); GLUCOSE 139 mg/dL (75-110); POTASSIUM 4.6 mmol/L (3.6-5.0); SODIUM 140.6 mmol/L (137-145); TOTAL PROTEIN 6.7 g/dL (6.3-8.2)
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
[2018-06-07 15:25] VITALS: BP 143/88
--- NOTE | 2018-06-08 12:42 | EKG REPORT ---
SEVERITY:- BORDERLINE ECG - SINUS RHYTHM BORDERLINE LEFT AXIS DEVIATION BORDERLINE T ABNORMALITIES, ANT-LAT LEADS : Confirmed by: Trinidad Breaux MD 08-Jun-2018 12:41:12
== END 2018-06-07 15:53 | disposition home or self-care (01) ==
LOC: ER 10:05
DX: G51.0 Bell's palsy (principal); H60.392 Other infective otitis externa, left ear; I48.91 Unspecified atrial fibrillation; I50.9 Heart failure, unspecified; E78.00 Pure hypercholesterolemia, unspecified; I11.0 Hypertensive heart disease with heart failure; E11.9 Type 2 diabetes mellitus without complications; Z88.6 Allergy status to analgesic agent; I25.2 Old myocardial infarction; Z90.49 Acquired absence of other specified parts of digestive tract; Z79.4 Long term (current) use of insulin
CPT/HCPCS: 36415; 70450; 80053; 85025; 93005; 93010; 99285

== ENCOUNTER → 2018-10-17 | Outpatient (CLI) | payer MEDICARE, MEDICAID ==
--- NOTE | 2018-10-22 11:25 | WOMENS IMAGING REPORT ---
EXAM DESCRIPTION: 3D SCREENING MAMMO BILAT COMPLETED DATE/TIME: 10/17/2018 10:33 am REASON FOR STUDY: Z12.31 SCREENING MAMMO Z12.31 ENCNTR SCREEN MAMMOGRAM FOR MALIGNANT NEOPLASM OF B RE COMPARISON: None. TECHNIQUE: Standard craniocaudal and mediolateral oblique views of each breast recorded using digita l acquisition and breast tomosynthesis. LIMITATIONS: None. FINDINGS: No masses, calcifications or architectural distortion. No areas of suspicion. Read with the assistance of CAD. .[facility] - R2 Cenova Version 1.3 .[facility] Imaging - R2 Cenova Version 2.1 .[facility] - R2 Cenova Version 2.4 .[facility] - R2 Cenova Version 2.4 .[facility] - R2 Medical Record Clerk Version 9.2 IMPRESSION: NORMAL MAMMOGRAM. BIRADS 1. BREAST DENSITY: a. The breasts are almost entirely fatty. BIRAD: 1 NEGATIVE RECOMMENDATION: ROUTINE SCREENING COMMENT: The patient has been notified of the results by letter per SA requirements. Additional no tification policies are in place for contacting patient with suspicious or incomplete findings. Quality ID #[id number]: The [employer] recommends an annual screening mammogram for women aged 40 years or over. This facility utilizes a reminder system to ensure that all patients receive reminder letters, and/or direct phone calls for appointments. This includes reminders for routine scr eening mammograms, diagnostic mammograms, or other Breast Imaging Interventions when appropriate. Th is patient will be placed in the appropriate reminder system. The [employer] (ACR) has developed recommendations for screening MRI of the breast s in certain patient populations, to be used in conjunction with mammography. Breast MRI surveillanc e may be appropriate for women with more than 20% lifetime risk of developing breast cancer as deter mined by genetic testing, significant family history of the disease, or history of mantle radiation f or Hodgkins Disease. ACR Practice Guidelines 2008. DBT Technology DBT is a type of tomographic mammography. With conventional mammography, overlapping breast tissue ma y make lesions difficult to detect, even with good compression. DBT uses an x-ray tube that rotates a round the breast, taking images at different angles. These images are then combined to create thin sl ices of the breast that the radiologist can view as a 3D reconstruction. The [employer] unit can perform full-field digital mammograms (2D imaging); or DBT (3D imaging); or both, in a combination mode that quickly performs both the mammogram and the tomosynthesis scan while the breast is still compressed. PQRS 6045F: Fluoroscopic imaging is not utilized for breast tomosynthesis. TECHNICAL DOCUMENTATION: FINDING NUMBER: (1) ASSESSMENT: (1) JOB ID: [id number] [place] [facility] 911- All Rights Reserved Reading location - IP/workstation name: [email or web address]
== END ==
LOC: WI 09:52
PROVIDERS: ATTEND Physician Assistant
DX: Z12.31 Encounter for screening mammogram for malignant neoplasm of breast (principal)
CPT/HCPCS: 77063; 77067